=== PATIENT | male | born 1990 | race American Indian/Alaskan Native ===

== ENCOUNTER 2021-08-26 23:00 | Emergency (ER) | payer SELFPAY ==
[2021-08-26 23:04] VITALS: BP 126/76
--- NOTE | 2021-08-27 04:29 | Emergency Department Report ---
- General Chief Complaint: Upper Respiratory Infection Stated Complaint: COVID SX Time Seen by Provider: 08/27/21 03:16 Source: patient Mode of arrival: Ambulatory Limitations: No Limitations - History of Present Illness Initial Comments: 30-year-old [place] male presents emerged department complaining of a few day history of cough congestion and fever sensation and wanted to be tested for COVID. No nausea, no vomiting no chest pain, no rashes, no shortness of breath, no diarrhea, no headache. MD Complaint: cough, rhinorrhea -: Gradual Severity: mild Consistency: constant Improves With: nothing Worsens With: nothing Context: sick contacts Associated Symptoms: denies other symptoms, nasal congestion. denies: chills, myalgias, diaphoresis, chest pain, shortness of breath, abdominal pain, vomiting, diarrhea, weight loss, epistaxis, hoarseness - Related Data Previous Rx's Medication Instructions Recorded Last Taken Type Ketorolac [Toradol] 10 mg PO Q6H PRN #10 08/27/21 Unknown Rx Allergies Allergy/AdvReac Type Severity Reaction Status Date / Time vancomycin Allergy Unknown Verified 08/26/21 23:04 ED Review of Systems ROS: Stated complaint: COVID SX Other details as noted in HPI Comment: All other systems reviewed and negative ED Past Medical Hx - Past Medical History Previous Medical History?: No - Surgical History Past Surgical History?: No - Medications Home Medications: Home Medications Medication Instructions Recorded Confirmed Last Taken Type Ketorolac [Toradol] 10 mg PO Q6H PRN #10 08/27/21 Unknown Rx ED Physical Exam - General Limitations: No Limitations General appearance: alert, in no apparent distress - Head Head exam: Present: atraumatic, normocephalic - Eye Eye exam: Present: normal appearance, PERRL, EOMI - ENT ENT exam: Present: mucous membranes moist - Neck Neck exam: Present: normal inspection - Respiratory Respiratory exam: Present: normal lung sounds bilaterally. Absent: respiratory distress - Cardiovascular Cardiovascular Exam: Present: regular rate, normal rhythm. Absent: systolic murmur, diastolic murmur, rubs, gallop - GI/Abdominal GI/Abdominal exam: Present: soft, normal bowel sounds - Rectal Rectal exam: Present: deferred - Extremities Exam Extremities exam: Present: normal inspection - Back Exam Back exam: Present: normal inspection - Neurological Exam Neurological exam: Present: alert, oriented X3 - Psychiatric Psychiatric exam: Present: normal affect, normal mood - Skin Skin exam: Present: warm, dry, intact, normal color. Absent: rash ED Course Vital Signs 08/26/21 23:03 Temperature 98.0 F Pulse Rate 94 H Respiratory 16 Rate Blood Pressure 126/76 O2 Sat by Pulse 99 Oximetry ED Medical Decision Making - Medical Decision Making This 30-year-old male patient presents with symptoms suspicious for likely viral upper respiratory tract infection. Differential includes bacterial pneumonia, sinusitis, allergic rhinitis, COVID-19. Do not suspect underlying Cardiopu lmonary process. I considered but think unlikely dangerous cause of this patient symptoms to include acute coronary syndrome, CHF or COPD exacerbations, pneumonia, pneumothorax. Patient is nontoxic appearing and not in need of emergent medical intervention. Plan: Reassurance, reassessment, [id number] medications, discharge with PCP follow-up recommend COVID-19 test this patient presents with lower respiratory symptoms concerning for viral syndrome including flu. Patient does not meet criteria for COVID-19. Doubt pneumonia, sepsis or other serious bacterial infection or acute emergent condition. Is otherwise well- appearing with acceptable vitals and reassuring physical examination and is safe to be discharged home. Patient lacks serious medical comorbidities that would require admission. Patient is nontoxic and although symptomatic otherwise safe to go home. Will provide strict return precautions and instructions on self isolation/quarantine and anticipatory guidance. Critical care attestation.: If time is entered above; I have spent that time in minutes in the direct care of this critically ill patient, excluding procedure time. ED Disposition Clinical Impression: URI (upper respiratory infection) Disposition: HOME / SELF CARE / HOMELESS Is pt being admited?: No Does the pt Need Aspirin: No Condition: Stable Instructions: Cool Mist Vaporizer, COVID-19 Frequently Asked Questions, Upper Respiratory Infection, Adult, [id number], Cough, Adult, COVID-19 Additional Instructions: Given evaluate emergency department today for your congestion, cough and fevers. Your evaluation suggest that your symptoms are most likely due to a viral illness. Which will improve on its own with rest and fluids. Is also recommended that you seek a follow-up visit at a testing site to receive a COVID-19 test Recommend that you take ibuprofen 600 mg every 6 hours or Tylenol 650 every 6 hours as needed for fever. If needed you can alternate these medications so that you take one medication every 3 hours. For instance at noon take ibuprofen and at 3 PM take Tylenol and then at 6 PM take ibuprofen. Please schedule an appointment for follow-up with your primary care physician within a week. Return to the emergency department if you experience worsening cough, uncontrollable fevers that not being controlled with Tylenol ibuprofen. Recurrent vomiting, chest pain, shortness of breath or any other symptoms suggesting that your condition is worsening. Prescriptions: Ketorolac [Toradol] 10 mg PO Q6H PRN #10 PRN Reason: Pain Referrals: [facility] [Provider Group] - 3-5 Days PRIMARY CARE, [Primary Care Provider] - 3-5 Days
== END 2021-08-27 05:28 | disposition home or self-care (01) ==
LOC: ED 23:00
DX: J06.9 Acute upper respiratory infection, unspecified (principal); Z88.1 Allergy status to other antibiotic agents; Z79.899 Other long term (current) drug therapy
CPT/HCPCS: 99282